=== PATIENT | male | born 1960 | race Caucasian/White ===

== ENCOUNTER → 2024-08-01 | Day surgery (SDC) | payer BC, OTHER ==
[~2024-08-01] MED LIST: AIRBORNE TABLE1 EACH; CO Q1060 MG PO; FISH OIL 1,0001 EAC2 PO; GLUCOSAMINE1000 MG PO; LATANOPROST2.5 ML OP; MULTI-VITAMIN1 EACH PO; NKM; PRESERVISION A1 EAC5; PROPOFOL IV EMULSION 10 MG/ML 20 ML VIAL ONE; PROPOFOL IV EMULSION 50 ML IV ONE; TUMERIC PO
[2024-08-01] MEDS: LACTATED RINGER'S 1,000 ML ONE (09:46)
[2024-08-01 10:30] VITALS: BP 103/81; PULSE 72; RESP 16; TEMP 97; O2SAT 97
== END | disposition home or self-care (01) ==
LOC: OR 08:01
PROVIDERS: ATTEND Internal Medicine Gastroenterology
DX: Z09 Encounter for follow-up examination after completed treatment for conditions other than malignant neoplasm (principal); K63.5 Polyp of colon; K62.1 Rectal polyp; K64.8 Other hemorrhoids; Z01.810 Encounter for preprocedural cardiovascular examination; Z79.899 Other long term (current) drug therapy
CPT/HCPCS: 45385; 93005; J2704; J7121; 45378